=== PATIENT | male | born 1975 | race Hispanic/Latino ===

== ENCOUNTER 2024-04-01 11:23 | Emergency (ER) | payer OTHER ==
[~2024-04-01] VITALS: Ht 165.1 cm; Wt 80.7 kg
[2024-04-01] MEDS ORDERED: Diph, Acellular Pertussis, Tet 0.5 ML/VIAL (Tdap) SDV IM ONE (11:45)
[2024-04-01] MEDS ORDERED: POVIDONE IODINE 0.5 OZ/BTL TOP ONE (11:45)
[2024-04-01] MEDS ORDERED: LIDOcaine HCl 1% (Local Anesth.) 20 ML VIAL STI STA (11:45)
[2024-04-01 12:14] LABS: BASO% 0.3 % (0-3); EOS% 3.8 % (0-8); HEMATOCRIT 41.8 % (39.0-50.0); HEMOGLOBIN 14.4 g/dl (14.0-18.0); IMMATURE GRANULOCYTES 0.2 % (0.0-5.0); MEAN CELL VOLUME 90.3 fL CALC (80.0-100.0); MEAN CORPUSCULAR HGB 31.1 pG CALC (26.0-32.0); MEAN CORPUSCULAR HGB CONC 34.4 g/dL CAL (32.0-36.0); NEUT# 9.76 thou/uL (1.82-7.42); NEUT% 73.7 % (42-76); RED BLOOD COUNT 4.63 mill/uL (4.70-6.10); RED CELL DISTRI WIDTH 12.1 % (11.5-15.5)
[2024-04-01 12:24] LABS: ALBUMIN 4.7 g/dL (3.2-5.0); ALKALINE PHOSPHATASE 102 u/l (38-126); ANION GAP 12 (6-22 (CALC)); BILIRUBIN, TOTAL 0.5 mg/dL (0.2-1.3); BUN 13 mg/dL (9-20); BUN/CREATININE RATIO 16 (12-20 (CALC)); CARBON DIOXIDE 23 mmol/l (22-30); CHLORIDE 108 mmol/l (95-108); CREATININE 0.8 mg/dL (0.7-1.3); ESTIMATED GFR 110 ML/MIN (>=90 (CALC)); LIPASE 151 u/l (23-300); POTASSIUM 3.8 mmol/l (3.5-5.1); SGOT/AST 48 u/l (17-59); SODIUM 140 mmol/l (137-146); TOTAL PROTEIN 8.3 g/dL (6.3-8.2)
[2024-04-01] MEDS ORDERED: KETOROLAC TROMETHAMINE 30 MG/ML SDV IV ONE (13:05)
[2024-04-01] MEDS ORDERED: HYDROCO/APAP1 TA9 PO (13:31)
[2024-04-01] MEDS ORDERED: MOTRIN400 MG/TAB PO (13:31)
[2024-04-01] MEDS ORDERED: CEPHALEXIN500 M1 PO (13:31)
[2024-04-01 14:00] VITALS: BP 168/101
== END 2024-04-01 14:18 | disposition home or self-care (01) | DRG 185 ==
LOC: ED 11:23
PROVIDERS: Family Medicine
PROC: 0HQ1XZZ Repair Face Skin, External Approach (ICD-10-PCS; principal; 2024-04-01)
DX: S22.42XA Multiple fractures of ribs, left side, initial encounter for closed fracture (principal); S01.81XA Laceration without foreign body of other part of head, initial encounter; S20.312A Abrasion of left front wall of thorax, initial encounter; W17.89XA Other fall from one level to another, initial encounter
CPT/HCPCS: Q9967